=== PATIENT | female | born 1990 | race Caucasian/White ===

== ENCOUNTER 2024-06-29 21:28 | Emergency (ER) | payer MEDICAID ==
[~2024-06-29] VITALS: Ht 162.6 cm; Wt 95.0 kg
[2024-06-29 21:38] VITALS: TEMP 36.9; O2SAT 98
[2024-06-29] MEDS ORDERED: CYCL10TA21 MT (23:06)
[2024-06-29] MEDS ORDERED: AMOX1TAB16 MT (23:06)
[2024-06-29 23:21] VITALS: BP 139/92; PULSE 82; RESP 18; O2SAT 99
== END 2024-06-29 23:22 | disposition home or self-care (01) ==
LOC: ER 21:28
DX: M26.609 Unspecified temporomandibular joint disorder, unspecified side (principal); K02.9 Dental caries, unspecified
CPT/HCPCS: 99283